=== PATIENT | male | born 1935 | race Caucasian/White ===

== ENCOUNTER 2025-01-28 14:22 | Inpatient (IN) | payer OTHER, SELFPAY ==
[2025-01-28] VITALS (11 sets, daily range): BP systolic 94–131; BP diastolic 50–81; BMI 24.4; BMI 23.3
[2025-01-28 10:41] LABS: Hematocrit 37.5 % (39.0-52.0); Hemoglobin 12.8 g/dL (13.0-18.0); Mean Corp Hgb Conc. 34.1 g/dL (33.0-37.0); Mean Corpuscular Volume 89.1 fL (80.0-94.0); Nucleated Red Blood Cells % 0 % (-); Platelet Count 163 10^3/uL (130-400); Red Cell Dist. Width 12.4 % (11.5-14.5)
--- NOTE | 2025-01-28 10:49 | ED.GENMED ---
History of Present Illness
General
Chief Complaint: Breathing Problem
Source: patient
Exam Limitations: none
Time Seen by Provider: 01/28/25 10:33
History of Present Illness
History of Present Illness:
89-year-old male with history of COPD presents with worsening dyspnea on exertion over the past several weeks. This seems to have gotten worse over the last several days. There is no chest pain. He has a history of hypertension as well. He is
not anticoagulated. No new leg swelling or calf pain. No recent surgery or travel. He was evaluated as an outpatient and echocardiogram done in the middle of October which showed an ejection fraction of 45 to 50% and sever . No other complaints
at this time
Phy Exam
Physical Exam
Physical Exam:
General: Well-appearing male no acute respiratory distress
HEENT: Normocephalic atraumatic
Heart: Regular rate and rhythm
Lungs: Breath sounds diminished bilaterally
Extremities: Mild pitting edema bilateral lower extremities
Abdomen is soft nontender nondistended
Scores
Heart Failure Risk
Heart Failure Risk Score: Yes
History of Stroke or TIA: No
History of intubation for respiratory distress: No
Heart rate on ED arrival >/= 110: No
SaO2 <90% on arrival on room air: No
HR >/=110 during 3min walk test (or too ill to perform test): Yes
ECG has acute ischemic changes: No
Urea >/=12mmol/L (BUN 33.6mg/dL): No
Serum CO2>/=35mmol/L: No
Troponin I or T elevated to WA Level (0.4mg/dL): No
NT-proBNP >/=5,000ng/L (5,000pg/ml): Yes
HF Risk Score: 3
Admission Status: HIGH RISK 15.9% Consider SNF treatment or admission to hospital
Course
Orders/Labs/Results
Orders:
Orders
01/28/25 09:31
EKG [Electrocardiogram (*1)] Urgent
Reason for Study: Shortness of Breath
01/28/25 09:32
EKG- Treatment ONCE
01/28/25 10:31
Complete Blood Count/With Diff Urgent
Comprehensive Metabolic Panel Urgent
NT-proBNP Urgent
Troponin I Urgent
01/28/25 10:48
CR Chest - 2 Views Urgent
Comment:
Reason For Exam: sob
Abnormal Lab Results
01/28/25
10:31
RBC 4.21 L 10^6/uL
(4.70-6.10)
Hgb 12.8 L g/dL
(13.0-18.0)
Hct 37.5 L %
(39.0-52.0)
Absolute Lymphs (auto) 0.9 L 10^3/uL
(1.2-3.4)
Absolute Monos (auto) 0.7 H 10^3/uL
(0.1-0.6)
Lymphocytes % 15.5 L %
(20.5-51.1)
Monocytes % 11.6 H %
(1.7-9.3)
01/28/25 10:31
01/28/25 10:31
Vital Signs
Initial and Last Documented VS:
Initial Vital Signs
Temp Pulse Resp BP Pulse Ox
97.8 F 72 16 116/63 96
01/28/25 09:27 01/28/25 09:27 01/28/25 09:27 01/28/25 09:27 01/28/25 09:27
Last Documented Vital Signs
Temp Pulse Resp BP Pulse Ox
97.8 F 81 11 116/63 96
01/28/25 09:27 01/28/25 11:00 01/28/25 11:00 01/28/25 09:27 01/28/25 11:00
MDM/Problems Addressed
Differential Diagnosis Includes:
Shortness of breath with exertion. Differential could include ACS versus CHF versus COPD versus anemia
Overall there is mild edema to the legs but does not look terribly volume overloaded. There is no respiratory difficulty at rest. Breath sounds slightly diminished but may be a product of his COPD. No risk for PE. There is no pain. He has no
symptoms at rest. Will check labs including EKG troponin and BNP. X-ray pending. Will ambulate the patient to evaluate his heart rate and oxygen status when ambulating
*Pulse Oximetry
SaO2: 97
Oxygen Mode of Delivery: Room air
Patient hypoxic: no
*Critical Care Note
Total Time (30-74mins, 75-104mins- exclusive of procedures): Not Applicable
Update Note
Update Note:
Chest x-ray shows pulmonary edema BNP 11,000. Ambulatory test demonstrates the patient becomes hypoxic upon minimal ambulation. He drops to 87% with several steps. Given symptoms of dyspnea on exertion edema elevated BNP and recent echocardiogram
demonstrated ejection fraction 45 to 50% with severe aortic stenosis, will admit to hospital. Lasix ordered for CHF
ED Attending Note
-
Portions of this chart may have been created with voice recognition software.� Occasional wrong word or��sound alike� substitutions may have occurred due to the inherent limitations of voice recognition software.
Discharge Plan
Departure
Patient Disposition: Admit
Date of Disposition: 01/28/25
Time of Disposition: 12:08
Presentation/result/management discussed w/ accepting MD/DO: Hospitalist
Discharge Problem:
CHF (congestive heart failure)
Interventions
Interventions:
*Risk Screen - Suicide Last Done: 01/28/25 09:27
*Neglect/Abuse Screening Last Done: 01/28/25 09:27
ED- Cardiac Assessment Last Done: 01/28/25 10:32
ED- Pulmonary Assessment Last Done: 01/28/25 10:32
Discharge Date and Time
Print Language: NEPALI
[2025-01-28 11:03] LABS: Troponin I 0.015 ng/ml
[2025-01-28 11:09] LABS: ALT (SGPT) 11 U/L (0-50); AST (SGOT) 18 U/L (17-59); Albumin 3.9 g/dl (3.5-5.0); Alkaline Phosphatase 61 U/L (38-126); Blood Urea Nitrogen 19 mg/dl (9-20); Calcium 9.2 mg/dl (8.4-10.2); Carbon Dioxide 28 mmol/L (22-30); Chloride 102 mmol/L (98-107); Estimated Creatinine Clearance 59 ml/min; Glucose 96 mg/dl (70-99); Potassium 3.7 mmol/L (3.5-5.1); Sodium 135 mmol/L (135-145); Total Protein 6.4 g/dl (6.3-8.2); eGFR > 60.00
[2025-01-28] MEDS: LASIX 40 MG IV (12:38)
--- NOTE | 2025-01-28 12:47 | HPS.HSE ---
Family Physician
-
Family Physician:
Chief Complaint
-
Shortness of breath, OROZCO, CP
History of Present Illness
89-year-old male from home where he lives independent attached to his son's home who states he has had shortness of breath since November on and off. It has been more consistent with exertion over the past 10 days with some associated chest discomfort
during exertion. He went to his PCP and had outpatient echo in October at [facility] which showed EF 45-50% along with critical aortic stenosis. He denies recent fever, chills, sore throat, palpitations, abdominal pain, nausea, vomiting,
diarrhea, urinary symptoms. He has past medical history of hypertension, COPD, former smoker, BPH, GERD.
Medical History
Past Medical History
Past Medical History: Reports Other
Additional Past Medical History:
hypertension
COPD
former smoker,
BPH
GERD.
Past Surgical History: Reports Other
Social History
Tobacco: Former Smoker (48 years 1 to 2 pack a day stopped 39 years ago)
Alcohol: None
Drug: None
Personal: Single
Living: Alone (But lives attached to his son's home)
Employment: Retired
Family History
Family History: Not pertinent
Allergies / Home Medications
Allergies reflects when Allergies were last updated in [employer] [facility].
Home Medications with original date entered in [employer] [facility]
Allergy/Medication List:
Allergies
Allergy/AdvReac Type Severity Reaction Status Date / Time
No Known Allergies Allergy Unverified 01/28/25 09:26
Home Medications
Breztri Aerosphere 2 puff inhalation BID 01/28/25
Colace 100 mg PO DAILY 01/28/25
Fish Oil 1,000 mg PO DAILY 01/28/25
Flomax 0.4 mg PO DAILY 01/28/25
Psyllium Husk Fibre 1 tab PO DAILY 01/28/25
lisinopril-hydrochlorothiazide 10 mg PO DAILY 01/28/25
pantoprazole 40 mg PO DAILY@0730 01/28/25
vitamin E 1 cap PO DAILY 01/28/25
Review of Systems
-
History Source: Patient and Family (Son and [id number])
A 12 point ROS was completed and negative except as noted: Yes
Constitutional: Denies Fever
EENT: Denies Sore Throat or Runny Nose
Respiratory: Reports Trouble Breathing and Other (OROZCO); Denies Cough
Cardiac: Reports Chest Pain (With exertional CP); Denies Diaphoresis, Palpitations or Syncope
Abdomen/GI: Denies Abdominal Pain, Nausea, Vomiting, Diarrhea or Constipated
: Denies Dysuria, Frequency, Flank Pain, Incontinence or Difficulty Voiding
Musculoskeletal: Reports Edema (+1 bilateral lower legs); Denies Joint Pain
Skin: Denies Itching or Rash
Neurological: Denies Dizzy or Headache
Endocrine: Reports No Symptoms
Hematologic/Lymphatic: Reports No Symptoms
Psych: Reports Calm
Physical Exam
Vital Signs
Vital Signs
Temp Pulse Resp BP Pulse Ox
97.8 F 67 16 105/67 97
01/28/25 09:27 01/28/25 12:38 01/28/25 12:38 01/28/25 12:38 01/28/25 12:38
Physical Exam
General: Comfortable and Conversant; No Pain, Fever or Chills
HEENT: NormoCephalic, Anicteric, Moist mucous membranes, PERRLA, [place] Conjunctivae and No Ptosis
Respiratory: Clear; No Wheezes, Rales or Rhonchi
Cardiac: S1/S2, Regular Rhythm, Murmur (2/6 systolic) and Peripheral Edema (+1 bilateral lower legs); No Rub or Gallop
GI: Soft, Non Tender, Non Distended, Normal Bowel Sounds and No Hepatosplenomegaly
Rectal: Deferred by Provider
Genito-urinary: Deferred by me
Musculoskeletal: No Clubbing, No Cyanosis, Edema, Left Lower Extremity (+1) and Edema, Right Lower Extremity (+1); No Edema, Left Upper Extremity or Edema, Right Upper Extremity
Skin: Warm and Dry; No Rash or Jaundice
Neuro: AO x 3, No Motor Deficits, Nonfocal/grossly intact and No Sensory Deficits; No Slurred Speech, Facial Droop or Tremors
Psych: Calm
Laboratory Results
-
01/28/25 10:31
01/28/25 10:31
Laboratory Results
Total Bilirubin 0.6 mg/dl (0.2-1.3) 01/28/25 10:31
AST 18 U/L (17-59) 01/28/25 10:31
ALT 11 U/L (0-50) 01/28/25 10:31
Alkaline Phosphatase 61 U/L (38-126) 01/28/25 10:31
Troponin I 0.015 ng/ml 01/28/25 10:31
Data Reviewed
-
Diagnostic Radiology: Report Reviewed by me
Lab Data: Labs Reviewed by me
Impression/Plan
-
Impression/plan:
Admit to telemetry
#Acute dyspnea on exertion likely secondary to critical aortic stenosis/acute combined CHF
#Cardiomyopathy reduced EF 45% per echo October 2024
Symptoms since November worse over the past 10 days associated with chest pain
- I/O, daily weight
- IV Lasix 40 mg given in ER will give 40 mg daily
- Consult CBC cardiology Dr. Wahl made aware
- Follow CBC, CMP
PT/OT consult
CXR: Pulmonary vascularity at least top normal no findings to suggest pneumonia
2D echo 11/13/2024: EF 45-50%, global hypokinesis, grade 2 diastolic dysfunction, normal LV S LVSF, mild LVH,
Scanned into chart normal RV size and function, dilated left atrium
Critical aortic stenosis peak gradient 97 mmHg mean gradient 61 mmHg. Mild mitral regurgitation, trace TR
#COPD�no acute exacerbation
-Continue Breztri inhaler
#HTN�benign
May continue lisinopril 10 mg daily hold HCTZ 12.5 mg daily
#BPH
Continue Flomax 0.4 mg daily
#GERD
Continue Protonix 40 mg daily
DVT prophylaxis
Subcu heparin
DNR per patient with family present
--- NOTE | 2025-01-28 12:48 | CON.CAR ---
Addendum entered and electronically signed by Sam Wahl MD 01/28/25 16:54:
I saw and evaluated the patient, and I provided the substantive portion of the medical decision making.
I reviewed and agree with the note by Maria Isabel Reinoso and it accurately reflects our care.
I personally performed the medical decision making of the this encounter and my assessment and plan is below:
89-year-old male (does not see cardiology), with HFrEF (45 to 50%), critical aortic stenosis, COPD, former smoker, and hypertension who presented to the emergency department with the chief complaint of OROZCO. He never fully got the result of his
echo but he began to limit his daily swims at the [facility] in October. At first he though it was just COPD. He lives in a in-law suite attached to his daughter's house, but is still very independent doing all of his ADLs, swimming at the daily usually.
On exam he has a caudally displaced heart sounds, 2 out of 6 crescendo decrescendo murmur right under rib cage, lungs clear to auscultation bilaterally, trace lower extremity edema always asymmetrical per his daughter who is at the bedside.
Acute heart failure with mildly reduced ejection fraction: I suspect a valvular etiology. Agree with gentle IV diuresis, this will require intensive monitoring.
Severe aortic stenosis: I suspect this is already caused some systolic depression. Explained TAVR is a good consideration for him. Will ask the team to see him while he is here. Explained this is typically done in the outpatient setting. He
understands and is agreeable. I explained that most of his symptoms may simply be due to his severe aortic stenosis.
COPD: Chronic
Hypertension Typically on hydrochlorothiazide and lisinopril holding hydrochlorothiazide and lieu of furosemide. Continue lisinopril.
Original Note:
Consultation
Consultation Request
Date/Time Consultation Requested: 01/28/2025 12:45
Date/Time Consultation Performed: 01/28/2025 12:50
Requesting Provider: CHILANGO Kwan
Performing Provider: CHILANGO Mcdaniel for Dr. Wahl
Reason for Consultation: Acute on chronic HFrEF
Medical History
-
Chief Complaint: Dyspnea on exertion
History of Present Illness:
Bony Valle is an 89-year-old male (does not see cardiology), with HFrEF (45 to 50%), critical aortic stenosis, COPD, former smoker, and hypertension who presented to the emergency department with the chief complaint of OROZCO. His shortness of breath
started at least 4 weeks ago. It has been slowly getting worse. It gets worse with exertional activities. He does not have any shortness of breath at rest. He denies PND and orthopnea. In October he had an echocardiogram ordered by his PCP. He
does not recall this was not discussed with him at his most recent office visit. He denies chest pain, dizziness, and syncope.
His daughter and son-in-law were present for this consultation.
Past Medical History
Past Medical History: CHF (HFrEF [EF 45 to 50%]), COPD, HTN and Valvular Disease (Critical aortic stenosis)
Social History
Tobacco: Former Smoker
Alcohol: None
Living: Alone (Attached to son's home)
Employment: Retired ([employer])
Family History
Family History: Reviewed & Not Pertinent
Allergies / Home Medications
Allergy/AdvReac Type Severity Reaction Status Date / Time
No Known Allergies Allergy Unverified 01/28/25 09:26
�Medication �Instructions �Recorded �Confirmed �Type
Breztri Aerosphere 2 puff inhalation BID 01/28/25 01/28/25 History
Colace 100 mg PO DAILY 01/28/25 01/28/25 History
Fish Oil 1,000 mg PO DAILY 01/28/25 01/28/25 History
Flomax 0.4 mg PO DAILY 01/28/25 01/28/25 History
Psyllium Husk Fibre 1 tab PO DAILY 01/28/25 01/28/25 History
lisinopril-hydrochlorothiazide 10 mg PO DAILY 01/28/25 01/28/25 History
pantoprazole 40 mg PO DAILY@0730 01/28/25 01/28/25 History
vitamin E 1 cap PO DAILY 01/28/25 01/28/25 History
Review of Systems
-
History Source: Patient
All other systems: Negative unless noted
Constitutional: Fatigue
EENT: No Symptoms
Respiratory: Trouble Breathing
Cardiac: No Symptoms
Abdomen/GI: No Symptoms
: No Symptoms
Musculoskeletal: No Symptoms
Skin: No Symptoms
Neurological: No Symptoms
Endocrine: No Symptoms
Hematologic/Lymphatic: No Symptoms
Physical Exam
Vital Signs
Temp Pulse Resp BP Pulse Ox
97.8 F 67 16 105/67 97
01/28/25 09:27 01/28/25 12:38 01/28/25 12:38 01/28/25 12:38 01/28/25 12:38
Lab Results
01/28/25 10:31
01/28/25 10:31
Troponin I 0.015 ng/ml 01/28/25 10:31
Ckr-A-Mlcgivcmjek Pept [id number] pg/ml 01/28/25 10:31
Physical Exam
General: Well Developed, Well Nourished, No Apparent Distress and Comfortable
HEENT: Normocephalic, Anicteric and Moist Mucous Membranes
Respiratory: Clear and Non Labored Respirations
Cardiac: S1/S2, Regular Rhythm, Murmur (III/) and Peripheral Edema (+1 ankle edema)
Breast: Deferred by me
GI: Soft, Non Tender, Non Distended and Normal Bowel Sounds
Rectal: Deferred by Provider
Genito-urinary: No Costovertebral Tender
Musculoskeletal: No Clubbing and No Cyanosis
Skin: Warm and Dry
Neuro: Awake and Alert
Hematologic/Lymphatic: No Lymphadenopathy
Psych: Calm
Impression / Plan
-
I/P: 89M with critical aortic stenosis, COPD, and hypertension who presented to the emergency department with C/O of OROZCO.
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
HFrEF (EF 45-50%), acute on chronic - severe requiring hospitalization
- Diuresis with furosemide 40 mg IV daily, this requires intensive monitoring
- Can consider SGLT2i if affordable
- Heart failure education
- Trend Daily weight, I/O, BMP with diuresis
Aortic stenosis, critical
- Per report, peak/mean 97/61 mmHg (CAITLIN 0.4-0.6 cm2) - 10/2024 at an outside facility
- No imaging for review, update TTE
- He would be interested in a TAVR if he is a candidate
Hypertension
- Stop HCTZ in favor of furosemide
- Follow BP
COPD, no acute exacerbation, per primary
Former smoker, continued cessation recommended
Data Reviewed
-
EKG: Report Reviewed by me (Sinus rhythm, nonspecific T wave abnormality, rate 80)
Radiology: Report Reviewed by me
Labs: Labs Reviewed by me
Old Records: Requested
--- NOTE | 2025-01-28 13:21 | W.PN.UPDATE ---
Update Note
Progress Note Update
This note serves as an addendum to the H&P by shop fitter Luis F Bray
HPI�
89M Former smoker , lives alone,I- ADL , next to So's house sen at ER:
- I- ADL - lives independent
- Progressive SoB since November now more with minimal exertion over last 10days
- associated chest discomfort during exertion
- Seen by PCP and had outpatient echo in October at [facility] which showed EF 45-50% along with critical aortic stenosis.
ROS:
denies recent fever, chills, sore throat, palpitations, abdominal pain, nausea, vomiting, diarrhea, urinary symptoms.
PMHX
hypertension, COPD, former smoker, BPH, GERD.
Reviewed VS:
Temp Pulse Resp BP Pulse Ox
97.8 F 70 17 116/59 96
01/28/25 09:27 01/28/25 13:30 01/28/25 13:30 01/28/25 13:03 01/28/25 13:03
PE
Gen: Conversant, NAD
HEENT: anicterics
Neck:No JVD
Lungs: Clear; No Wheezes, Rales
Cor: S1/S2, Regular Rhythm, loud SM at apex
Abdomen:�soft NT NG
BULK PLANT SUPERVISOR:
MS: B/L Kalen 1 trace edema
Psych: appropriate
Relevant Data�
01/28/25
10:31
WBC 5.6
Hgb 12.8 L
BUN 19
Creatinine 0.8
eGFR > 60.00
Troponin I 0.015
Rtm-X-Irkxhgvgfyb Pept [id number]
EKG
NORMAL SINUS RHYTHM
NONSPECIFIC T WAVE ABNORMALITY
ABNORMAL ECG
NO PREVIOUS ECGS AVAILABLE
Confirmed by MD JUANI, NNAMDI Reardon ([id number]) on 01/28/2025 11:16:56 AM
CXR
- No findings to suggest pneumonia.
- Pulmonary vascularity at least top normal.
NO PRIOR hospitalist admission:
11/13/[address] [facility]
LV EF 45-50%,
global hypokinesis
grade 2 diastolic dysfunction, normal LV S LVSF, mild LVH,
normal RV size and function, dilated left atrium
Critical aortic stenosis peak gradient 97 mmHg mean gradient 61 mmHg.
Mild mitral regurgitation
Trace TR
Last hospitalist admission:
ASSESSMENT & PLAN
Acute HF
Suspect HFrEF with EF 45%
Associated critical aortic stenosis - suspect symtomatic
Acute dyspnea on exertion likely secondary to critical aortic stenosis/acute combined CHF
Cardiomyopathy reduced EF 45% per echo October 2024
- IV alsix 40 daily
- Daily BMP
- Daily I/O, daily weight
- Consult CBC cardiology Dr. Wahl made aware
COPD HX
� no AE
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
Marginal hypotension
Essential HTN
- cont. lisinopril 10 mg daily - Hold for SBP < 110 due to critical
- hold HCTZ 12.5 mg daily
BPH
- c/w Flomax 0.4 mg daily
DVT prophylaxis; SQH
DNR per patient with family present
IP TLM
--- NOTE | 2025-01-28 17:58 | TRANSFER ---
Pt came to 3W unit around 1600 vis hospital bed. Pt was able to ambulate from hospital bed to room bed without any need for assistance. Pt denied OROZCO when ambulated from bed in hallway to bed in room. medical dir completed. Pt had no complaint of
pain at this time. Will continue with plan of care.
[2025-01-28] MEDS: HEPARIN 5000 UNITS SC (20:53)
[2025-01-29] VITALS (7 sets, daily range): BP systolic 93–116; BP diastolic 50–67; PULSE 91; O2SAT 97; BMI 23.1
[2025-01-29 06:47] LABS: Hematocrit 35.4 % (39.0-52.0); Hemoglobin 12.0 g/dL (13.0-18.0); Mean Corp Hgb Conc. 33.9 g/dL (33.0-37.0); Mean Corpuscular Volume 88.5 fL (80.0-94.0); Nucleated Red Blood Cells % 0 % (-); Platelet Count 172 10^3/uL (130-400); Red Cell Dist. Width 12.3 % (11.5-14.5)
[2025-01-29 07:01] LABS: ALT (SGPT) < 10 U/L (0-50); AST (SGOT) 17 U/L (17-59); Albumin 3.5 g/dl (3.5-5.0); Alkaline Phosphatase 51 U/L (38-126); Blood Urea Nitrogen 26 mg/dl (9-20); Calcium 9.3 mg/dl (8.4-10.2); Carbon Dioxide 32 mmol/L (22-30); Chloride 102 mmol/L (98-107); Estimated Creatinine Clearance 47 ml/min; Glucose 87 mg/dl (70-99); HDL Cholesterol 56 mg/dl; LDL Cholesterol, Calculated 84 mg/dl; Magnesium 1.8 mg/dl (1.6-2.3); Potassium 4.1 mmol/L (3.5-5.1); Sodium 137 mmol/L (135-145); Total Protein 5.8 g/dl (6.3-8.2); Very Low Density Lipoprotein 12 mg/dl (0-30); eGFR > 60.00
[2025-01-29] MEDS: NON-FORMULARY ITEM 1 UNIT INH (07:53)
[2025-01-29] MEDS: PROTONIX 40 MG PO (08:10)
[2025-01-29] MEDS: COLACE 100 MG PO (08:10)
[2025-01-29] MEDS: FLOMAX 0.4 MG PO (08:10)
[2025-01-29] MEDS: HEPARIN 5000 UNITS SC ×2 (08:11→20:30)
[2025-01-29] MEDS: LASIX 40 MG IV (08:13)
--- NOTE | 2025-01-29 08:37 | W.PN.CD ---
Today's Communication / Plan
-
expedite TAVR workup with CT today, cath tomorrow, discharge post cath if feeling well with outpatient TAVR in next week or so
Impression / Plan
-
I/P: 89M with critical aortic stenosis, COPD, and hypertension who presented to the emergency department with C/O of OROZCO.
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
Aortic stenosis, critical
- truly critical with mean gradient 80 with DVI 0.1
- discussed TAVR at length - will pursue expedited workup with CTA today, cath tomorrow; plan for outpatient TAVR ideally next week as long as able to ambulate without symptoms
- explained that he cannot exert himself until valve replaced and that any symptoms of shortness of breath, lightheadedness, palpitations, weakness, chest pain, etc. should prompt presentation to the ED
HFrEF (EF 45-50%), acute on chronic - severe requiring hospitalization
- likely 2/2 valvular heart disease though hypokinesis of the anterior and anterolateral geronimo raises possibility of CAD
- Would hold additional diuresis for now given pre-load dependence
- favor initiation of GDMT after valve replacement - continue home lisinopril 10 (hold HCTZ)
- Trend Daily weight, I/O, BMP
Hypertension
- Stop HCTZ in favor of furosemide
- Follow BP
COPD, no acute exacerbation, per primary
Former smoker, continued cessation recommended
Physical Exam
Vital Signs/Labs
Vital Signs
Temp Pulse Resp BP Pulse Ox
36.9 C 89 16 106/67 95
01/29/25 07:00 01/29/25 08:27 01/29/25 07:55 01/29/25 08:27 01/29/25 07:55
01/28/25 01/29/25 01/30/25
06:59 06:59 06:59
Actual Weight 66.814 kg
01/29/25 06:09
01/29/25 06:09
Magnesium 1.8 mg/dl (1.6-2.3) 01/29/25 06:09
Triglycerides 60 mg/dl (10-149) 01/29/25 06:09
LDL Cholesterol, Calc 84 mg/dl 01/29/25 06:09
VLDL Cholesterol, Calc 12 mg/dl (0-30) 01/29/25 06:09
HDL Cholesterol 56 mg/dl 01/29/25 06:09
01/28/25
10:31
Kdz-V-Ehgygodxrii Pept [id number]
LAB Results
01/28/25
10:31
Troponin I 0.015
Physical Exam
Constitutional: Comfortable
Cardiovascular: Rhythm & rate is regular and Systolic murmur present
Respiratory: Respiratory effort normal
Neuro/Psych: AO x 3
Data Reviewed
-
Date of Service: January 29, 2025
Medical Decision Making: Reviewed Test Results
EKG: Tracing Personally Visualized and interpreted
Echo: Tracing Personally Visualized and interpreted
Labs: Labs Reviewed by me
--- NOTE | 2025-01-29 09:50 | PTOTSP ---
Patient demonstrates safe and independent mobility, no skilled physical therapy needed at this time.
--- NOTE | 2025-01-29 09:51 | W.PN.HOSP.TC ---
Today's Communication/Plan
-
See plan
Assessment / Plan
Assessment / Plan
Impression:
Acute CHF mildly reduced EF/valvular
Critical aortic stenosis
Essential hypertension
COPD without acute exacerbation
Former smoker
BPH
Plan
Acute CHF mildly reduced EF (45-50%).
Exacerbation likely due to critical aortic stenosis.
Responding to initial diuresis with Lasix, although with soft BP and worsening alkalosis.
Stable respiratory status with no requirement of supplemental oxygen at rest.
With severe aortic stenosis plan is to hold further Lasix and monitor respiratory status and hemodynamics closely
Continue lisinopril with caution
GDMT likely to be initiated/adjusted as outpatient post aortic valve replacement
Hold HCTZ
Critical aortic stenosis.
Echo with mean gradient 18 and aortic valve area 0.54 cm�/DVI 0.1
Initiated evaluation for TAVR including CT scan and ischemic evaluation.
Essential hypertension
BP soft with diuresis.
Hold HCTZ.
Continue lisinopril with caution
Avoid excessive hypotension with critical
COPD.
Lungs clear with no evidence of acute exacerbation
Former smoker per
Continue breast tree
BPH
On Flomax continue with caution for hypotension
Anticipated Discharge: 24 - 48 hours
Subjective/Interval History
-
Date of Service: January 29, 2025
Objective Data
-
Labs:
Laboratory Results
01/29/25
06:09
WBC 5.1
Hgb 12.0 L
Hct 35.4 L
Plt Count 172
Sodium 137
Potassium 4.1
Chloride 102
Carbon Dioxide 32 H
BUN 26 H
Creatinine 1.0
Glucose 87
Calcium 9.3
Total Bilirubin 0.6
AST 17
ALT < 10
Alkaline Phosphatase 51
Vital Signs:
Vital Signs
Temp Pulse Resp BP Pulse Ox
98.4 F 89 16 106/67 97
01/29/25 07:00 01/29/25 08:27 01/29/25 07:55 01/29/25 08:27 01/29/25 08:20
I&O
01/28/25 01/29/25 01/30/25
06:59 06:59 06:59
Intake Total 240 / 240
Output Total 925 / 925
Balance -685 / -685
Physical Exam
-
General: Well Developed and No Apparent Distress
HEENT: Normocephalic, Atraumatic and Moist Mucous Membranes
Respiratory: Clear to Auscultation
Cardiac: Regular Rhythm, S1/S2 and Murmur (Left sternal border 3 out of 6 systolic); Negative Rub or Gallop
GI: Soft, Nontender, Nondistended and Normal Bowel Sounds; Negative Organomegaly
Rectal: Deferred by Provider
Musculoskeletal: No Clubbing, No Cyanosis and No Edema
Skin: Negative Rash
Neuro: Nonfocal/Grossly Intact
--- NOTE | 2025-01-29 11:46 | CONSULT.STRU ---
Addendum entered and electronically signed by Krishna Mills MD 01/30/25 09:49:
I saw and examined the patient.
The PASTRY ARTIST's note was reviewed and I agree with the note.
Comment:
I met with Mr. Valle, given his age and comorbidities I do believe that a transcatheter option would be most reasonable provided his anatomy on TAVR CT is acceptable. He will undergo LHC and CT scans today, I will review, and revisit him over the
weekend to expedite his procedure.
Original Note:
Consultation
-
Date/Time Consultation Requested: 01/29/2025
Date/Time Consultation Performed: 01/29/2025
Requesting Provider: Dr. Hooper
Performing Provider: CHILANGO Paris
Reason for Consultation: Critical Aortic Stenosis/ TAVR evaluation
Patient History
Physicians
Family Physician: Nino Olivas
Outpatient Shipping Receiving Clerk: None
Primary Shipping Receiving Clerk: None
History of Present Illness
Bony Valle is a very pleasant 89-year-old male with past medical history of HFrEF (45 to 50%), critical aortic stenosis, COPD, former smoker, and hypertension. He presented to the emergency department on 01/28 with the chief complaint of OROZCO. His
shortness of breath started at least 4 weeks ago. It has been slowly getting worse. It gets worse with exertional activities. He does not have any shortness of breath at rest. He also complains of near syncopal episodes. He denies chest pain,
palpitations, PND and orthopnea. In October he had an echocardiogram ordered by his PCP. He does not recall if the results were discussed with him at his most recent office visit. He does not follow with a skiver blockers and recalls being told for
years he has a murmur, but first echocardiogram was October.
Pathophysiology of aortic stenosis reviewed with Mr. Valle as well as the treatment options of SAVR and TAVR. Explained he will need dental clearance. He is to get his CT TAVR today and cardiac cath tomorrow with Dr. Hooper. Provided with TAVR
education booklet and contact information. Allowed for and answered questions.
Past Medical History
Past Medical History: BPH, CHF, COPD, OROZCO, GERD, HTN and Valvular Disease (Critical , Mild AI, Mild to moderate MR)
Past Surgical History
Past Surgical History: None
Dental History
Sees dentist annually for cleaning, denies and mouth pain- Dr. Cong Yeboah
Family History
Mother: N/A
Father: N/A
Social History
Alcohol: None
Drug: None
Tobacco: Former Smoker (Quit 40+ years ago, 40 year h/o 1 1/2-2ppd)
Personal: Single
Living: Alone
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
Allergies
Allergy/AdvReac Type Severity Reaction Status Date / Time
No Known Allergies Allergy Unverified 01/28/25 09:26
Home Medications
�Medication �Instructions �Recorded �Confirmed �Type
Breztri Aerosphere 2 puff inhalation BID 01/28/25 01/28/25 History
Colace 100 mg PO DAILY 01/28/25 01/28/25 History
Fish Oil 1,000 mg PO DAILY 01/28/25 01/28/25 History
Flomax 0.4 mg PO DAILY 01/28/25 01/28/25 History
Psyllium Husk Fibre 1 tab PO DAILY 01/28/25 01/28/25 History
lisinopril-hydrochlorothiazide 10 mg PO DAILY 01/28/25 01/28/25 History
pantoprazole 40 mg PO DAILY@0730 01/28/25 01/28/25 History
vitamin E 1 cap PO DAILY 01/28/25 01/28/25 History
Review of Systems
-
History Source: Patient
General: Reports Weight Loss
HEENT: Reports Dysphagia
Respiratory: Reports Other (COPD, bronchitis about 2 years ago, no recent exacerbations )
Cardiac: Reports Edema (recent, mild LE); Denies Palpitations, Nausea or Vomiting
Abdomen/GI: Reports No Symptoms; Denies Nausea, Vomiting or Diarrhea
: Reports No Symptoms
Musculoskeletal: Reports No Symptoms
Skin: Reports Other (rosacea)
Neurological: Reports No Symptoms
Vascular: Reports No Symptoms; Denies Claudication
Physical Exam
Vital Signs
Temp 98.2 F 01/29/25 11:00
Temp route: Oral 01/29/25 11:00
Pulse 75 01/29/25 11:00
Rhythm: Normal sinus rhythm 01/29/25 08:20
With- Sinus bradycardia 01/28/25 20:50
Resp Rate 18 01/29/25 11:00
Blood pressure 116/57 01/29/25 11:00
Blood pressure extremity used: Left upper arm 01/29/25 11:00
Position: Lying 01/29/25 11:00
MAP (cuff-Kristine Monitor) 56 01/28/25 15:00
SaO2 98 01/29/25 11:00
Oxygen Mode of Delivery Room air 01/29/25 11:00
Pulse Ox at Rest 97 01/29/25 09:36
Acceptable pain level during hospitalization? 0 01/28/25 09:27
Can the patient verbally communicate their pain? Yes 01/29/25 08:20
Actual Weight 66.814 kg 01/29/25 06:00
Body Mass Index (BMI) 23.1 01/29/25 06:00
Sitting- Blood Pressure 112/61 01/29/25 09:36
Sitting- Pulse 91 01/29/25 09:36
Heart rate after activity 97 01/29/25 09:36
Oxygen Saturation with Activity 95 01/29/25 09:36
Labs
01/29/25 06:09
01/29/25 06:09
Troponin I 0.015 ng/ml 01/28/25 10:31
Bmq-X-Lgfgljwuoma Pept 34771 pg/ml 01/28/25 10:31
Diagnostic Studies
01/28/2025 Echocardiogram:
SUMMARY
1. Mildly reduced left ventricular ejection fraction. LVEF 40–45 9%.
2. Hypokinesis of the anterior and anterolateral geronimo.
3. Critical aortic stenosis with peak/mean gradient 139/80 mmHg, CAITLIN 0.54 cm², DVI 0.1.
4. Mild aortic regurgitation.
5. No prior study available for comparison.
6. Findings communicated to on-call cardiology team via [place] [facility].

Transthoracic Echo procedure
A complete Transthoracic Echocardiogram was performed utilizing Two-Dimensional evaluation with color flow and spectral Doppler analysis.
PHYSICIAN INTERPRETATION
Left Ventricle:
Normal left ventricle size and wall thickness with mildly reduced systolic function. Left ventricular ejection fraction is 40-45% by visual estimate. Hypokinesis of the anterior and anterolateral geronimo. Stage II diastolic dysfunction consistent with
elevated LV filling pressures.
Right Ventricle:
Right ventricular size and systolic function are within normal limits.
Left Atrium:
Indexed left atrial volume is within normal range (15-34 ml/m2).
Right Atrium:
The right atrium is normal in size and structure. The inferior vena cava was not well visualized.
Interatrial Septum:
The interatrial septum appears normal and intact, with no evidence of interatrial shunting.
Aortic Valve:
Thickened and calcified aortic valve. Critical aortic stenosis. Peak/mean gradients are 139/80 mmHg. Using an left ventricular outflow tract of 2.2 cm., the CAITLIN = .54 cm2. DVI 0.1. Mild aortic regurgitation.
Mitral Valve:
There is thickening of the anterior and posterior leaflets of the mitral valve. Mild mitral annular calcification. Mild to moderate mitral valve regurgitation.
Tricuspid Valve:
Right heart pressure cannot be estimated. Tricuspid valve opens normally. No tricuspid regurgitation.
Pulmonary Valve:
The pulmonic valve is not well seen.
Aorta:
The aortic annulus is normal in diameter.
Exam
General: Well Developed, Well Nourished, No Apparent Distress and Comfortable
HEENT: Normocephalic, Moist Mucous Membranes and PERRLA
Neck: Trachea Midline
Respiratory: Clear; Negative Wheezes, Crackles or Rhonchi
Cardiac: S1/S2, Regular Rhythm and Murmur (Grade III/ RAFAEL)
GI: Soft, Non Tender, Non Distended and Normal Bowel Sounds
Rectal: Deferred by Provider
Skin: Warm and Dry
Neuro: AO x 3 and No Motor Deficits
Extremities: Negative Lower Level Edema
Psych: Calm
Assessment / Plan
-
HFrEF (EF 45-50%), acute on chronic - severe requiring hospitalization
- Diuresis as recommended by cardiology
- Heart failure education
- Trend Daily weight, I/O, BMP with diuresis
- low sodium diet
Aortic stenosis, critical
- peak/mean 139/80 mmHg (CAITLIN 0.54 cm2)
- Expedited TAVR evaluation
- CT TAVR scan today
- Cardiac cath tomorrow
- Will need dental clearance
- Will need to begin Aspirin 81mg daily
Hypertension
- Follow BP
- medication as recommended by cardiology
COPD
- no recent exacerbations
- follows with Dr. Mckeon (alarm installation technician) as an outpatient
- continue current inhaler regimen
Data Reviewed
-
EKG: Report Reviewed by me
Echo: Report Reviewed by me and Discussed with Physician
Labs: Labs Reviewed by me
Total Time Spent with Patient (in minutes): 40
--- NOTE | 2025-01-29 12:23 | CM ---
Patient seen at bedside
IA completed
CT today, cath tomorrow
Lives in an apartment alone, no steps
PLOF: independent, no assistive device used
independent with ADL's
DME: Walker, cane, shower chair
Denies VN/Rehab
PCP: Nino Olivas
Pharmacy: [facility]
PLAN: Home, no needs anticipated when stable
family to transport
[2025-01-29] MEDS: NON-FORMULARY ITEM 2 UNIT INH (19:26)
[2025-01-30] VITALS (8 sets, daily range): BP systolic 96–121; BP diastolic 48–63; BMI 22.8
[2025-01-30 06:25] LABS: Hematocrit 36.2 % (39.0-52.0); Hemoglobin 12.9 g/dL (13.0-18.0); Mean Corp Hgb Conc. 35.6 g/dL (33.0-37.0); Mean Corpuscular Volume 87.9 fL (80.0-94.0); Nucleated Red Blood Cells % 0 % (-); Platelet Count 168 10^3/uL (130-400); Red Cell Dist. Width 12.3 % (11.5-14.5)
[2025-01-30] MEDS: COLACE PO (07:07)
[2025-01-30] MEDS: PROTONIX PO (07:07)
[2025-01-30] MEDS: FLOMAX PO (07:08)
[2025-01-30] MEDS: HEPARIN 5000 UNITS SC (07:24)
[2025-01-30 07:26] LABS: ALT (SGPT) < 10 U/L (0-50); AST (SGOT) 18 U/L (17-59); Albumin 3.7 g/dl (3.5-5.0); Alkaline Phosphatase 58 U/L (38-126); Blood Urea Nitrogen 25 mg/dl (9-20); Calcium 8.9 mg/dl (8.4-10.2); Carbon Dioxide 30 mmol/L (22-30); Chloride 100 mmol/L (98-107); Estimated Creatinine Clearance 52 ml/min; Glucose 94 mg/dl (70-99); Potassium 3.7 mmol/L (3.5-5.1); Sodium 136 mmol/L (135-145); Total Protein 6.0 g/dl (6.3-8.2); eGFR > 60.00
[2025-01-30] MEDS: NON-FORMULARY ITEM 2 UNIT INH (07:49)
--- NOTE | 2025-01-30 11:18 | CM ---
patient seen at bedside
await cardiac cath
PLAN: Home, when stable, no needs anticipated
--- NOTE | 2025-01-30 15:57 | ITS.CL.PN ---
Addendum entered and electronically signed by Isreal Hooper MD 01/30/25 16:24:
CONCLUSION:
1. Trivial luminal irregularities only in a left dominant system.
2. Mildly elevated biventricular filling pressures and normal cardiac output.
Original Note:
Director Ehs - Procedure Note
Procedure
Procedure Note:
CARDIAC CATHETERIZATION REPORT
Date of Procedure: 01/30/2025
Referring: Dr. Kavya Wahl MD
Indication: Severe aortic stenosis
PROCEDURE(S)
1. right heart catheterization
2. left heart catheterization
3. coronary angiography
ACCESS
1. 6F right radial artery (closure: radial band)
2. 5F right antecubital vein (closure: manual hemostasis)
CATHETERS
1. 5F [place]-Kathleen
2. 6F JR4
3. 6F JL4
MODERATE SEDATION: 25 minutes of moderate sedation was utilized. An independent medical typist was present to assist with and help manage the patient's level of consciousness and physiologic status.
HEMODYNAMIC DATA
AO 116/56 (mean 77) mmHg
RA 7 mmHg
RV 42/1 (EDP 10) mmHg
PA 48/18 (mean 29) mmHg
PCWP 19 mmHg
SaO2 98.1%
SvO2 75.9%
Hb 13.3 g/dL
CO/CI 5.49/3.11 L/min/m2
SVR 1020 dsc*-5
PVR 1.8 Wood units
CORONARY ANGIOGRAPHY
Dominance: co-dominant
LM: large with no significant disease
LAD: large vessel giving rise to a small D1 and large D2. There are trivial luminal irregularities only.
LCx: large co-dominant vessel giving rise to a small OM1, large OM2, small LPL, and moderate caliber LPDA. There are trivial luminal irregularities only.
RCA: moderate caliber co-dominant vessel giving rise to a small RPDA. There are trivial luminal irregularities only.
RADIATION: dose 176 mGy; DAP 6.98 Gy*cm2; fluoroscopy time 3.2 min
CONCLUSION: Trivial luminal irregularities only in a left dominant system.
RECOMMENDATION: Proceed with expedited TAVR workup.
Copy to: Dr. Nino Olivas DO (PCP)
Signed: Isreal Hooper MD, PhD
--- NOTE | 2025-01-30 16:59 | W.DS.TRANS ---
DC Summary - Merchandise Displayer
-
Discharge Instructions:
Sleep Apnea Risk Intermediate
Discharge Diagnosis/Procedures Acute CHF mildly reduced EF/valvular
Critical aortic stenosis
Essential hypertension
COPD without acute exacerbation
Former smoker
BPH
Cardiac cath
Diet 2 Gram Sodium,Low Cholesterol
Instructions:
Stand-Alone Forms: DC Instructions- Cath/EP Lab
Changes to Home Medications: No
Discharge Medications:
DC Medications w/original date entered in [employer]
Breztri Aerosphere 2 puff inhalation BID Lung/Breathing Issues 01/28/25
Colace 100 mg PO DAILY Constipation 01/28/25
Fish Oil 1,000 mg PO DAILY Supplement 01/28/25
Flomax 0.4 mg PO DAILY Urinary Issue 01/28/25
Psyllium Husk Fibre 1 tab PO DAILY Constipation 01/28/25
pantoprazole 40 mg PO DAILY@0730 Gastrointestinal Issue 01/28/25
vitamin E 1 cap PO DAILY Supplement 01/28/25
lisinopril 10 mg tablet 10 mg PO DAILY #30 tabs 01/30/25
Home Medication Changes
HCTZ stopped
Pending Results: No
== END 2025-01-30 19:19 | disposition home or self-care (01) | DRG 286 ==
LOC: 3 WEST ACU 14:22
PROVIDERS: Clinical Nurse Specialist Family Health; Student in an Organized Health Care Education/Training Program; ADMITTING PHYSICIAN Internal Medicine; ATTENDING PHYSICIAN Internal Medicine; CONSULT PHYSICIAN Internal Medicine Cardiovascular Disease; EMERGENCY PHYSICIAN Emergency Medicine; FAMILY PHYSICIAN Internal Medicine
PROC: 4A023N8 Measurement of Cardiac Sampling and Pressure, Bilateral, Percutaneous Approach (ICD-10-PCS; 2025-01-30)
PROC: B2111ZZ Fluoroscopy of Multiple Coronary Arteries using Low Osmolar Contrast (ICD-10-PCS; 2025-01-30)
DX: I35.0 Nonrheumatic aortic (valve) stenosis (principal); I50.23 Acute on chronic systolic (congestive) heart failure; I11.0 Hypertensive heart disease with heart failure; J44.9 Chronic obstructive pulmonary disease, unspecified; K21.9 Gastro-esophageal reflux disease without esophagitis; N40.0 Benign prostatic hyperplasia without lower urinary tract symptoms; Z66 Do not resuscitate; I95.9 Hypotension, unspecified; Z60.2 Problems related to living alone; Z87.891 Personal history of nicotine dependence
CPT/HCPCS: 71046; 74174; 75572; 80053; 80061; 83735; 83880; 84484; 85025; 93005; 93306; 93460; 94640; 96374; 97162; 99152; 99153; 99285; C1769; C1894; Q9967

== ENCOUNTER 2025-02-05 14:54 | Inpatient (IN) | payer OTHER, SELFPAY ==
[2025-02-05 15:12] VITALS: BP 134/62
[2025-02-05 15:14] VITALS: BMI 23.7
--- NOTE | 2025-02-05 15:44 | CM ---
Reviewed chart. Met with Mr Valle and his daughter to review discharge plans. He states prior to admission he resides alone in an in-law apartment attached to his daughter and son-in law home. He states he has one level living arrangement. He
states he has two steps to enter the apartment. He states prior to admission he was independent with with ambulation and adls. He states he does not have any DME in the home. He states he has a prescription plan and uses [facility]. His
daughter states she will be home the weekend to check on him. We reviewed VNA Services because he maybe out of the catchment area for the Transitional Care Nurse. He is agreeable to VNA Services if indicated. Medical work-up in progress. The
discharge plan is to return home with his daughter and son-in-law and VNA Services if indicated when medically stable
We reviewed ore-op and post-op routines. We briefly reviewed the shower instructions. We also reviewed restrictions including driving and lifting restrictions. He maybe out of the catchment area for the Transitional Care Nurse, so he is agreeable
to VNA Services if needed. The plan is for TAVR on Sunday02/06/25.
[2025-02-05] MEDS: ASPIRIN 325 MG PO (15:58)
[2025-02-05 17:13] LABS: Hematocrit 36.7 % (39.0-52.0); Hemoglobin 12.7 g/dL (13.0-18.0); Mean Corp Hgb Conc. 34.6 g/dL (33.0-37.0); Mean Corpuscular Volume 89.5 fL (80.0-94.0); Platelet Count 168 10^3/uL (130-400); Red Cell Dist. Width 12.3 % (11.5-14.5)
[2025-02-05 17:30] LABS: Blood Urea Nitrogen 16 mg/dl (9-20); Calcium 9.0 mg/dl (8.4-10.2); Carbon Dioxide 27 mmol/L (22-30); Chloride 102 mmol/L (98-107); Estimated Creatinine Clearance 59 ml/min; Glucose 105 mg/dl (70-99); Potassium 4.9 mmol/L (3.5-5.1); Sodium 133 mmol/L (135-145); eGFR > 60.00
--- NOTE | 2025-02-05 17:45 | HPS.HSE ---
Chief Complaint
-
shortness of breath
History of Present Illness
Bony Valle is a 89-year-old male with past medical history of HFrEF (45 to 50%), critical aortic stenosis, COPD, former smoker, and hypertension. He presented to the emergency department on 01/28 with the chief complaint of OROZCO. His shortness of
breath started at least 4 weeks ago. It had been slowly getting worse. He does not have any shortness of breath at rest. He also complains of a near syncopal episode when swimming. He denies chest pain, palpitations, PND and orthopnea. He does
not follow with a excellence leader and recalls being told for years he has a murmur.
While hospitalized he underwent right and left heart cath and TAVR CT angiogram as part of expedited TAVR workup. Right heart cath demonstrated normal hemodynamics and coronary angiography demonstrated minimal CAD. His TAVR CT angiogram demonstrated
anatomy appropriate for TAVR. He was discharged with plan for close outpatient TAVR, and underwent dental evaluation. While at home he has had progression of dyspnea on exertion, now with minimal activity. In the setting the decision was made to
have him admitted for urgent TAVR.
Medical History
Past Medical History
Past Medical History: Reports Other
Additional Past Medical History:
BPH, COPD, CHF, GERD, HTN, critical
Past Surgical History: Reports Other
Additional Past Surgical History:
none
Social History
Tobacco: Non-smoker
Family History
Family History: Not pertinent
Allergies / Home Medications
Allergies reflects when Allergies were last updated in [facility].
Home Medications with original date entered in [facility]
Allergy/Medication List:
none
Review of Systems
-
Respiratory: Reports Trouble Breathing
Physical Exam
Vital Signs
Vital Signs
Pulse BP Pulse Ox
80 134/62 98
02/05/25 15:15 02/05/25 15:12 02/05/25 16:00
Physical Exam
General: Well Nourished
Respiratory: Clear
Cardiac: Regular Rhythm and Murmur
Skin: Warm
Neuro: AO x 3
Laboratory Results
-
02/05/25 17:04
02/05/25 17:04
Data Reviewed
-
Diagnostic Radiology: Image Personally Visualized and interpreted
CT Scan: Image Personally Visualized and interpreted
Lab Data: Labs Reviewed by me
Impression/Plan
-
I/P: 89M with critical aortic stenosis, COPD, hypertension, admitted for urgent TAVR in setting of progressive symptoms with minimal activity.
Aortic stenosis, critical
- truly critical with mean gradient 80 with DVI 0.1
- Workup completed, discussed at multidisciplinary valve team meeting, decision made for 26 mm ELAINA with 2 additional cc of volume via right femoral artery with preballoon valvuloplasty
- Patient currently comfortable at rest, and given normal filling pressures on recent right heart cath will not diurese ahead of planned TAVR tomorrow
HFrEF (EF 45-50%), acute on chronic - severe requiring hospitalization
- likely 2/2 valvular heart disease, no CAD
- favor initiation of GDMT after valve replacement
- Trend Daily weight, I/O, BMP
Hypertension
- Follow BP
- will reinitiate antihypertensives with GDMT prioritized post TAVR
COPD, no acute exacerbation, per primary
Former smoker, continued cessation recommended
--- NOTE | 2025-02-05 17:56 | PTCARENOTE ---
Pt admitted as a direct admission for a TAVR on Sunday. Denies any pain or sob. Room air sat 98%. OOB ad reba, gait steady. SR, rate in the 80's to 90's. No c/o offered.
[2025-02-05 19:10] VITALS: BP 79/61
[2025-02-05 19:13] VITALS: BP 108/52
[2025-02-05] MEDS: SYMBICORT 160/4.5 MCG INHALER 2 PUFF INH (19:50)
--- NOTE | 2025-02-05 20:30 | PTCARENOTE ---
Received pt @ change of shift. AAOx3, VSS-- NSR on monitor. OROZCO. Denies chest pain. Discussed plan of care for evening, including TAVR prep. Pt verbalizes understanding. Call redman within reach.
[2025-02-05 22:02] VITALS: BP 136/72
[2025-02-06] VITALS (17 sets, daily range): BP systolic 91–146; BP diastolic 48–63; BMI 23.7; BMI 23.5
--- NOTE | 2025-02-06 00:19 | PTCARENOTE ---
TAVR prep completed. Pt clipped, washed with CHG soap, new gown and bedding. Discussed plan for morning prep. Pt verbalizes understanding. Notified CV PA (Ebenezer Morse) that prep was completed.
--- NOTE | 2025-02-06 05:29 | PTCARENOTE ---
Second CHG bath given. Gown and bedding changed. Vitals taken and stable. Height and weight documented. Will obtain Ancef to be sent with pt prior to his leaving. Aspirin will be given-- see JUL.
Bhavna (daughter) is patient's emergency contact--[phone]
[2025-02-06] MEDS: LOW STRENGTH ASPIRIN 81 MG PO (05:51)
--- NOTE | 2025-02-06 06:17 | W.CVOR.SURPR ---
CVOR Surgeon Immed Pre Op
-
I have examined this patient prior to performance of the scheduled procedure.
The patient's condition is unchanged from the time of the dictated/written History and
Physical and the patient is able to undergo the scheduled procedure.
[2025-02-06] MEDS: ANCEF 10 IV ×2 (07:45)
[2025-02-06] MEDS: ANCEF 5 IV (07:45)
[2025-02-06] MEDS: THERAGRAN PO (08:00)
--- NOTE | 2025-02-06 08:34 | CM ---
Addendum entered by Jessica Zepeda 02/06/25 12:02:
Met with Mr. Valle and his family. Reviewed VNA Services with them. They are agreeable to [facility]. Telephone call to [facility] Liaison to make the referral. Sent the referral. Medial work-up in progress. The discharge plan is to return home
with his family and [facility] when medically stable.
Original Note:
Reviewed chart. Mr. Valle is in the operating room today. Prior to admission he resides alone in an in-law apartment attached to his daughter and son-in law home. He has one level living arrangement. He has two steps to enter the apartment. Prior
to admission he was independent with with ambulation and adls. He does not have any DME in the home. He states he has a prescription plan and uses [facility]. Daughter will be home the weekend to check on him. We reviewed VNA Services because he
maybe out of the catchment area for the Transitional Care Nurse. He is agreeable to VNA Services if indicated. Medical work-up in progress. The discharge plan is to return home with his daughter and son-in-law and VNA Services if indicated when
medically stable
[2025-02-06 08:50] LABS: ACT-LR - POC 310 Seconds (116-155)
--- NOTE | 2025-02-06 09:09 | W.IMMPOSTOP ---
Surgical Immed Post Op Note
-
[id number]
STRUCTURAL HEART PROCEDURE NOTE: TAVR
Preoperative Dx:
Critical aortic stenosis with peak/mean valve gradients of 139/80 mmHg respectively, CAITLIN 0.54, DVI 0.1, mild associated aortic regurgitation
Mild to moderate mitral regurgitation with thickened valve leaflets
LVEF 40 to 45% with hypokinesis of the anterior and anterolateral geronimo, stage II diastolic dysfunction
COPD (former smoker)
Hypertension
Gastroesophageal reflux disease
BPH
Postoperative Dx:
Same
Acute on chronic combined systolic and diastolic CHF secondary to critical aortic stenosis with LVEDP of 36mmHg
Procedures:
Left common femoral venous access with ultrasound and fluoroscopic guidance, modified Seldinger technique, long 6 [place] sheath placement
Left common femoral arterial access with tactile, ultrasound, and fluoroscopic guidance, modified Seldinger technique, limited angiography, long 6 [place] sheath placement
Placement of temporary RV pacing wire via left common femoral venous access with threshold testing
Placement of pigtail catheter in RCC with limited aortography and confirmation of coplanar valve deployment angles (AP)
Right common femoral arterial access with tactile, ultrasound, and fluoroscopic guidance, modified Seldinger technique, limited angiography, 8 [place] dilator placement
Perclose placement x 2 into right common femoral artery, 8 [place] sheath placement
Placement of Cantrell E sheath via right common femoral artery access (systemic heparinization)
Wire purchase across patient's stenotic aortic valve (AL-1, soft-tipped straight, LVEDP assessment, extra-stiff with curved proximal end)
Pre-TAVR BAV with 21 mm true balloon
Right transfemoral TAVR with placement of [employer] ELAINA 3 Resilia valve, 26 mm (+2)
Completion aortography
Completion TTE assessment (no PVL or AI, mean gradient 2 mmHg)
Removal of Cantrell E sheath with right common femoral artery management with Perclose sutures x 2; manual pressure (protamine administration)
Completion right iliofemoral angiography
Removal of temporary pacing wire
Removal of left common femoral arterial 6 [place] sheath with management with Perclose suture x 1; manual pressure
Removal of left common femoral venous 6 [place] sheath with management with manual pressure
Equipment Service Engineer:
Dr. Isreal Hooper
Cardiac Surgeons:
Dr. Joaquin Gilmore
Dr. Loida Lainez
Anesthesia:
MAC and local to bilateral groins
Implants:
Cantrell [employer] ELAINA 3 Resilia valve 26 mm (+2); serial #[id number], model #[id number]
Perclose x 2 to right common femoral artery
Perclose x 1 to left common femoral artery
Cath Data:
Start: 0805hrs, Deploy: 0846hrs, End: 0906hrs
FT: 14.2min, mGy: 209, DAP: 20.9, Contrast: 94
Mean gradient 2mmHg, no AI/PVL
Complications:
None
Condition:
Stable/guarded to recovery; NSR
--- NOTE | 2025-02-06 11:00 | PTCARENOTE ---
Rec'd report from Yelena in the clinical laboratory technologist & rec'd pt AAOx3, a little drowsy but easily arousable. Pt w/no c/o CP or SOB. VSS w/HR in the 50's & BP 115/50. Pt is SB on telemetry monitoring. Pt w/bilat groin sites w/dressings C/D/I w/no signs or
symptoms of bleeding or hematoma. Pt w/doppler pedal pulses. Discussed activity restrictions w/pt & family at bedside. Pt verbalized his understanding. Pt w/call redman within reach & plan of care ongoing.
[2025-02-06] MEDS: SYMBICORT 160/4.5 MCG INHALER INH (11:30)
[2025-02-06] MEDS: SPIRIVA RESPIMAT 2.5 MCG INH (11:30)
[2025-02-06] MEDS: FLOMAX 0.4 MG PO (14:23)
[2025-02-06] MEDS: COLACE 100 MG PO (14:23)
[2025-02-06] MEDS: PROTONIX 40 MG PO (14:23)
--- NOTE | 2025-02-06 19:28 | ITS.CL.PN ---
[facility] Physical Therapist - Procedure Note
Procedure
Procedure Note:
TRANSCATHETER AORTIC VALVE REPLACEMENT REPORT
Date of Procedure: 02/06/2025
Referring: Dr. Kavya Wahl MD
Indication: Symptomatic critical aortic valve stenosis
Operators: Isreal Hooper MD, PhD (interventional cardiology); Joaquin Gilmore (CT surgery)
Anesthesia: conscious sedation provided by the anesthesia staff
PROCEDURE: transfemoral, transcatheter aortic valve replacement with an Cantrell ELAINA 3 Ultra RESILIA 26 mm transcatheter aortic valve (with additional 2 cc inflation volume)
ACCESS:
1. 6F left femoral vein (closure: manual hemostasis) - Ultrasound was utilized for vascular access. The vessel was visualized under ultrasound and noted to be patent. An image of the vessel was stored permanently in the patient's medical record.
Under direct ultrasound guidance, vascular access was obtained using a modified Seldinger technique and a 6 Chinese sheath was placed.
2. 6F left common femoral artery (closure: Angioseal) - Ultrasound was utilized for vascular access. The vessel was visualized under ultrasound and noted to be patent. An image of the vessel was stored permanently in the patient's medical record.
Under direct ultrasound guidance, vascular access was obtained using a modified Seldinger technique and a 6 Chinese sheath was placed.
3. 14F right common femoral artery (closure: Perclose x2) - Ultrasound was utilized for vascular access. The vessel was visualized under ultrasound and noted to be patent. An image of the vessel was stored permanently in the patient's medical
record. Under direct ultrasound guidance, vascular access was obtained using a modified Seldinger technique and a 6 Chinese sheath was placed.
HEMODYNAMIC DATA
LVEDP 36 mmHg
PROCEDURE NARRATIVE:
The patient was prepped and draped in standard sterile fashion. Conscious sedation was provided by the anesthesia staff. 6F left femoral vein and left common femoral artery access was obtained with ultrasound guidance using micropuncture technique
with verification of appropriate arteriotomy location via hand injection angiography. A temporary venous pacing wire was advanced via the left femoral vein to the right ventricle under fluoroscopic guidance with appropriate capture verified. A 5F
pigtail catheter was advanced via the left common femoral artery and seated in the right coronary cusp. Angiography was performed to verify the co-planar angle.
8F right common femoral artery access was obtained with ultrasound guidance using micropuncture technique with verification of appropriate arteriotomy location via hand injection angiography. The arteriotomy was preclosed with two Perclose sutures
followed by replacement of the 8F sheath. Using an AL1 catheter, an Amplatz Extrastiff wire was placed in the descending thoracic aorta. The 8F sheath was removed and the 14 F Cantrell E-sheath was inserted over the Extrastiff wire and into the
descending aorta. Heparin was given. The AL1 catheter was re-advanced through the E-sheath to the level of the ascending aorta. The Extrastiff wire was exchanged for a soft tipped straight wire which was used to cross the aortic valve and deposit
the AL1 in the LV apex. A J-wire was used to exchange the AL1 for a pigtail catheter in the LV and LVEDP was measured. An Amplatz Extrastiff wire with curved proximal end was advanced through the pigtail catheter and seated in the LV apex. ACT was
checked and confirmed to be >300 seconds.
A 20 mm True valvuloplasty balloon was advanced over the Extrastiff wire and into the aortic annulus. Valvuloplasty was performed under rapid pacing with good balloon expansion. The valvuloplasty balloon was removed.
The valve was brought to the table with orientation and deployment contrast volume verified. The valve was advanced over the Extrastiff wire and into the descending aorta. The balloon was withdrawn, and the valve was mounted on the balloon. The
valve was advanced over the aortic arch and into the aortic valve annulus. The pusher device was withdrawn. Low volume aortography confirmed valve positioning. The valve was deployed during rapid ventricular pacing. The balloon was walked back to
the descending aorta while leaving the wire in place. The patient was resuscitated by anesthesia with recovery of adequate blood pressure. Telemetry demonstrating normal sinus rhythm. Aortography demonstrated good valve positioning, adequate
coronary filling, and no aortic valve insufficiency. Echocardiography confirmed no aortic insufficiency. Mean valve gradient was 2 mmHg. The valve deployment system was removed.
The Cantrell E sheath was removed, and hemostasis obtained with the two Perclose sutures. Protamine was given. Aortoiliac angiography demonstrated no evidence of iliofemoral dissection/perforation and good runoff below the common femoral artery
bilaterally. The pacemaker and the pigtail catheter were removed. The left femoral artery sheath was removed using a 6F Angioseal. The left femoral venous sheath was removed with manual pressure.
RADIATION: dose 209 mGy; DAP 20.9 Gy*cm2; fluoroscopy time 14.2 min
CONCLUSIONS
1. successful placement of a Cantrell ELAINA 3 Ultra RESILIA 26 mm transcatheter aortic valve (with additional 2 cc inflation volume) via right transfemoral approach with no acute complications
2. acute on chronic systolic heart failure with elevated filling pressures (LVEDP = 36)
Copy to: Dr. Nino Olivas DO (PCP)
Signed: Isreal Hooper MD, PhD
--- NOTE | 2025-02-06 20:09 | W.PN.CD ---
Today's Communication / Plan
-
successful TF TAVR for critical
echo with normal valve function
discharge tomorrow stable labs, sucessful ambulation, stable telemetry
Impression / Plan
-
89M with critical aortic stenosis, COPD, hypertension, admitted for urgent TAVR in setting of progressive symptoms with minimal activity now POD0 s/p sucessful S26+2 TAVR from right groin, no acute complications.
Aortic stenosis, critical
- truly critical with mean gradient 80 with DVI 0.1
- admitted for urgent TAVR given progressive symptoms at home
- TAVR with Laura S3UR 26 (+2 cc extra volume) from right groin, final gradient 2 mmHg in room, 4 mmHg later on transthoracic, no PVL
HFrEF (EF 45-50%), acute on chronic - severe requiring hospitalization
- likely 2/2 valvular heart disease, no CAD, already improved to 50-55% on post TAVR TTE
- reinitiate home lisinopril
- consider low dose BB as outpatient, possible role in cardiac remodeling
Hypertension
- Follow BP
- will reinitiate antihypertensives with GDMT prioritized post TAVR, consider BB as next agent as above
COPD, no acute exacerbation, per primary
Former smoker, continued cessation recommended
Physical Exam
Vital Signs/Labs
Vital Signs
Temp Pulse Resp BP Pulse Ox
36.6 C 72 18 146/63 96
02/06/25 19:37 02/06/25 17:45 02/06/25 19:37 02/06/25 15:19 02/06/25 19:37
02/05/25 02/06/25 02/07/25
06:59 06:59 06:59
Actual Weight 68 kg
02/05/25 17:04
02/05/25 17:04
Physical Exam
Constitutional: Comfortable
Cardiovascular: Rhythm & rate is regular
Respiratory: Respiratory effort normal
Neuro/Psych: AO x 3
Data Reviewed
-
Date of Service: February 06, 2025
Medical Decision Making: Reviewed Test Results
X-Ray/CT/US/MRI/NUC/PET: Image Personally Visualized and interpreted
Labs: Labs Reviewed by me
[2025-02-06] MEDS: SYMBICORT 160/4.5 MCG INHALER 2 PUFF INH (20:11)
--- NOTE | 2025-02-06 23:55 | PTCARENOTE ---
Pt. has no complaints of CP/discomfort, VSS, NSR on the monitor. Bilateral groin site dressings CDI without hematoma, bilateral pedal pulses normal. Pt. independent and ambulatory in room. Currently resting quietly.
[2025-02-07 02:10] VITALS: BP 136/53
[2025-02-07 02:26] VITALS: BMI 23.9
[2025-02-07 02:49] LABS: Hematocrit 33.5 % (39.0-52.0); Hemoglobin 11.6 g/dL (13.0-18.0); Mean Corp Hgb Conc. 34.6 g/dL (33.0-37.0); Mean Corpuscular Volume 87.7 fL (80.0-94.0); Platelet Count 159 10^3/uL (130-400); Red Cell Dist. Width 12.5 % (11.5-14.5)
[2025-02-07 03:13] LABS: Blood Urea Nitrogen 18 mg/dl (9-20); Calcium 9.3 mg/dl (8.4-10.2); Carbon Dioxide 25 mmol/L (22-30); Chloride 104 mmol/L (98-107); Estimated Creatinine Clearance 59 ml/min; Glucose 94 mg/dl (70-99); Magnesium 1.9 mg/dl (1.6-2.3); Potassium 4.7 mmol/L (3.5-5.1); Sodium 136 mmol/L (135-145); eGFR > 60.00
--- NOTE | 2025-02-07 04:01 | W.PN.CT ---
Addendum entered and electronically signed by Joaquin Gilmore MD 02/07/25 09:47:
I saw and examined the patient.
The PA's note was reviewed and I agree with the note.
Comment:
D/C home today
Original Note:
Today's Communication / Plan
-
Plan:
-No major issues overnight. Hemodynamically and neurologically intact
-No issues with rhythm, currently NSR @
-Cont. current meds, ASA only for TAVR
-Groin C/D/I without significant hematoma
-Repeat echo today
-OOB into chair/Ambulate
-Likely D/C home today
Assessment / Plan
-
Assessment:
-S/P Right transfemoral TAVR (26 mm Cantrell Lifesciences ELAINA 3 Resilia valve), by Dr. Gilmore/Sandie, 02/06/25, pod#1
-Critical aortic stenosis with peak/mean valve gradients of 139/80 mmHg respectively, CAITLIN 0.54, DVI 0.1, mild associated aortic regurgitation
-Mild to moderate mitral regurgitation with thickened valve leaflets
-HFrEF, LVEF 40 to 45% with hypokinesis of the anterior and anterolateral geronimo, stage II diastolic dysfunction; 50-55% postop per intraop ZAFAR
-COPD (former smoker)
-Hypertension
-Gastroesophageal reflux disease
-BPH
-Anemia
-Hearing impairment
-Acute postop hyponatremia, 133
Discussed patient care with: Cardiology, Nursing, Respiratory Therapy, Pharmacy and Care Team
Subjective
-
Date of Service: February 07, 2025
Pt offers no complaints, feels well
Objective Data
-
Lab Results
02/07/25 02:23
02/07/25 02:23
Vital Signs
Vital Signs
Temp Pulse Resp BP Pulse Ox
98.5 F 79 18 136/53 90
02/07/25 02:08 02/07/25 02:10 02/07/25 02:08 02/07/25 02:10 02/07/25 02:08
CT Intake/Output/Weight
02/06/25 02/06/25 02/07/25
06:59 18:59 06:59
Intake Total 1120 / 1360 240 / 1360
Output Total 300 / 300
Balance 820 / 1060 240 / 1060
SaO2: 91 (RA)
Physical Exam
-
General: Awake, Oriented and AOx3
Cardiovascular: Regular rate & rhythm, No Murmurs, No Rub and No Gallop
Respiratory: Clear
Incision: Clean, Dry, Intact and Dressing Intact
Extremities: Other (+trace edema)
Data Reviewed
-
Lab Results: Results Reviewed
Medications: Active Meds Reviewed
Chest X-Ray: Report Reviewed and Image Reviewed
ECG: Report Reviewed and Image Reviewed
[2025-02-07 07:27] VITALS: BP 151/65
[2025-02-07] MEDS: FLOMAX 0.4 MG PO (08:15)
[2025-02-07] MEDS: PROTONIX 40 MG PO (08:15)
[2025-02-07] MEDS: COLACE 100 MG PO (08:15)
[2025-02-07] MEDS: THERAGRAN 1 TABLET PO (08:16)
[2025-02-07] MEDS: LOW STRENGTH ASPIRIN 81 MG PO (08:16)
[2025-02-07] MEDS: SPIRIVA RESPIMAT 2.5 MCG 2 PUFF INH (08:31)
[2025-02-07] MEDS: SYMBICORT 160/4.5 MCG INHALER 2 PUFF INH (08:32)
--- NOTE | 2025-02-07 08:56 | W.DCSUMMARY ---
Discharge Summary
Discharge Data
Date of Admission: 02/05/25
Date of Discharge: 02/07/25
Total time spent discharging patient (in min): 15
-
Pending Results: No
Hospital Course
Primary care physician:
Nino Olivas
Outpatient griddle cook:
Isreal Hooper
Inpatient consultants:
Procedures:
1. 02/06/25: Pre-TAVR BAV with 21 mm true balloon, Right transfemoral TAVR with placement of Cantrell Lifesciences LAURA 3 Resilia valve, 26 mm (+2)
Primary Diagnosis:
-Critical aortic stenosis with peak/mean valve gradients of 139/80 mmHg respectively, CAITLIN 0.54, DVI 0.1, mild associated aortic regurgitation
-Mild to moderate mitral regurgitation with thickened valve leaflets
-HFrEF, LVEF 40 to 45% with hypokinesis of the anterior and anterolateral geronimo, stage II diastolic dysfunction; 50-55% postop per intraop ZAFAR
-COPD (former smoker)
-Hypertension
-Gastroesophageal reflux disease
-BPH
-Anemia
-Hearing impairment
Secondary Diagnoses:
-S/P Right transfemoral TAVR (26 mm Cantrell Lifesciences LAURA 3 Resilia valve), by Dr. Gilmore/Sandie, 02/06/25
-Acute postop hyponatremia, 133
-Critical aortic stenosis with peak/mean valve gradients of 139/80 mmHg respectively, CAITLIN 0.54, DVI 0.1, mild associated aortic regurgitation
-Mild to moderate mitral regurgitation with thickened valve leaflets
-HFrEF, LVEF 40 to 45% with hypokinesis of the anterior and anterolateral geronimo, stage II diastolic dysfunction; 50-55% postop per intraop ZAFAR
-COPD (former smoker)
-Hypertension
-Gastroesophageal reflux disease
-BPH
-Anemia
-Hearing impairment
HPI: Bony Valle is a 89-year-old male with past medical history of HFrEF (45 to 50%), critical aortic stenosis, COPD, former smoker, and hypertension. He presented to the emergency department on 01/28 with the chief complaint of OROZCO. His shortness
of breath started at least 4 weeks ago. It had been slowly getting worse. He does not have any shortness of breath at rest. He also complained of a near syncopal episode when swimming. He denies chest pain, palpitations, PND and orthopnea. He
recently has been following with Dr. 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
He was hospitalized in early January for heart failure and underwent right and left heart cath and TAVR CT angiogram as part of expedited TAVR workup. Right heart cath demonstrated normal hemodynamics and coronary angiography demonstrated minimal
CAD. His TAVR CT angiogram demonstrated anatomy appropriate for TAVR. He was discharged with plan for close outpatient TAVR, and underwent dental evaluation. While at home he has had progression of dyspnea on exertion with minimal activity. In the
setting the decision was made to have him admitted for urgent TAVR.
Hospital course: Patient was admitted on 02/05/25. Patient underwent TAVR on 02/06/25. He was transferred to the CVICU postoperatively in stable condition. His rhythm remained stable and EKG showed no evidence of bundle branch blocks on POD#1. He
underwent echocardiogram on POD#1 which showed:
1. Normal biventricular size and function without regional wall motion abnormalities.
2. LVEF is 50-55% by visual assessment. Mild left ventricular hypertrophy.
3. S/p 26 mm Cantrell Laura Resilia TAVR. Mean gradient is 4 mmHg no significant regurgitation.
4. Mild to moderate mitral regurgitation.
Patient was restarted on his home medications and it was felt that he could safely be discarged to home on POD#1. His access sites were intact without bleeding or hematomas.
Home medication changes:
Continued all home medications
New:
Aspirin 81mg Daily
Discharge Plan
-
Patient Disposition: Home (Routine Discharge)
Discharge Diagnosis/Procedures: TF-TAVR
Diet: Low Cholesterol and 2 Gram Sodium
Activity: As tolerated
Driving Restrictions: No driving for 1 week
Bathing Restrictions: OK to Shower
Others Tests: 30 Day Follow Up Echo: Schedule for you at [facility] on 03/09 @ 3pm
Other Services: Cardiac Rehab
Wound Care: Please do not apply powders, creams or lotions to groin areas. Monitor for increased pain, swelling, redness or drainage. Notify your doctor if any occur.
Specialty Instructions: Weigh Daily- Call MD for wt gain/loss 3 lbs overnight/5 lbs in 1 week
Referrals:
Nino Soler [Other]
Referral Note: Family Physician
[facility] [Outside] - in one to two days
Federica Hayward CRNP [Specified Professional Personl, Cardiology] - 03/11/25 11:30 am
Prescriptions:
New
aspirin 81 mg Tablet,Chewable
81 mg PO DAILY Qty: 0 0RF
Continued
Fish Oil
1,000 mg PO DAILY
Psyllium Husk Fibre
1 tab PO DAILY
vitamin E
1 cap PO DAILY
lisinopril 10 mg Tablet
10 mg PO DAILY Qty: 30 0RF
Patient Comments:
hold for BP <110
tamsulosin [Flomax] 0.4 mg Capsule
0.4 mg PO DAILY Qty: 0 0RF
pantoprazole 40 mg tablet,delayed release (DR/EC)
40 mg PO DAILY Qty: 0 0RF
docusate sodium [Colace] 100 mg Capsule
100 mg PO DAILY Qty: 0 0RF
Breztri Aerosphere 160-9-4.8 mcg/actuation Hfa Aerosol Inhaler
2 inh INHALATION BID Qty: 0 0RF
Discharge Orders:
Discharge Patient (As Directed); Ordered 02/07/25
Ordered By: Dez Thompson
Care Plan Goals
Care Plan Goals:
Problem: Readiness for enhanced knowledge related to diagnosis and treatment plan
Goal: Understand your diagnosis and treatment plan needs, including medications if applicable.
Instructions: Know your diagnosis, underlying causes and treatment plan options, including medications if applicable. Consult with your health care team to learn about your diagnosis and treatment plan, including medications if applicable.
Discharge Date and Time
Print Language: GERMAN
[2025-02-07 09:40] VITALS: BP 121/94; BP 149/51; PULSE 77; O2SAT 94; O2SAT 95
[2025-02-07] MEDS: ZESTRIL 10 MG PO (09:51)
--- NOTE | 2025-02-07 09:57 | W.PN.ANS.POP ---
Anesthesia Post Operative
- Anesthesia Post Op Note
Vital Signs Stable-See Nursing Note: Yes
Airway Patent: Yes
Adequate Pain Control: Yes
Change in Mental Status: No
Current Postoperative Nausea & Vomiting: No
Anesthesia Complications: No
General Anesthetic Recall: No
Unplanned Admission: No
Post Op Hydration Adequate: Yes
--- NOTE | 2025-02-07 13:24 | W.PN.CD ---
Today's Communication / Plan
-
d/c today
Impression / Plan
-
89M with critical aortic stenosis, COPD, hypertension, admitted for urgent TAVR in setting of progressive symptoms with minimal activity now POD0 s/p sucessful S26+2 TAVR from right groin, no acute complications.
Aortic stenosis, critical
- truly critical with mean gradient 80 with DVI 0.1
- admitted for urgent TAVR given progressive symptoms at home
- TAVR with Laura S3UR 26 (+2 cc extra volume) from right groin, final gradient 2 mmHg in room, 4 mmHg later on transthoracic, no PVL
- doing well
HFrEF (EF 45-50%), acute on chronic - severe requiring hospitalization
- likely 2/2 valvular heart disease, no CAD, already improved to 50-55% on post TAVR TTE
- reinitiate home lisinopril
- consider low dose BB as outpatient, possible role in cardiac remodeling
Hypertension
- Follow BP
- will reinitiate antihypertensives with GDMT prioritized post TAVR, consider BB as next agent as above
COPD, no acute exacerbation, per primary
Former smoker, continued cessation recommended
Subjective feels well
Physical Exam
Vital Signs/Labs
Vital Signs
Temp Pulse Resp BP Pulse Ox
97.7 F 70 18 151/65 98
02/07/25 12:03 02/07/25 12:03 02/07/25 12:03 02/07/25 07:27 02/07/25 12:03
02/06/25 02/07/25 02/08/25
06:59 06:59 06:59
Actual Weight 149 lb 14.629 oz 152 lb 5.431 oz
02/07/25 02:23
02/07/25 02:23
Magnesium 1.9 mg/dl (1.6-2.3) 02/07/25 02:23
Physical Exam
Constitutional: No acute distress and Comfortable
EENT: Anicteric
Cardiovascular: Rhythm & rate is regular
Respiratory: Respiratory effort normal
GI: Soft
Neuro/Psych: Alert and Oriented
Data Reviewed
-
Date of Service: February 07, 2025
Medical Decision Making: Reviewed Test Results
EKG: Tracing Personally Visualized and interpreted
Echo: Tracing Personally Visualized and interpreted
Labs: Labs Reviewed by me
== END 2025-02-07 13:16 | disposition home health service (06) | DRG 266 ==
LOC: IVU 14:54
PROVIDERS: Nurse Practitioner; Physician Assistant Surgical; Thoracic Surgery (Cardiothoracic Vascular Surgery); ADMITTING PHYSICIAN Student in an Organized Health Care Education/Training Program
PROC: 02RF38Z Replacement of Aortic Valve with Zooplastic Tissue, Percutaneous Approach (ICD-10-PCS; 2025-02-06)
DX: I35.2 Nonrheumatic aortic (valve) stenosis with insufficiency (principal); I50.43 Acute on chronic combined systolic (congestive) and diastolic (congestive) heart failure; E87.1 Hypo-osmolality and hyponatremia; I34.0 Nonrheumatic mitral (valve) insufficiency; J44.9 Chronic obstructive pulmonary disease, unspecified; I11.0 Hypertensive heart disease with heart failure; K21.9 Gastro-esophageal reflux disease without esophagitis; N40.0 Benign prostatic hyperplasia without lower urinary tract symptoms; D64.9 Anemia, unspecified; H91.90 Unspecified hearing loss, unspecified ear; Z87.891 Personal history of nicotine dependence
CPT/HCPCS: 33361; 71045; 80048; 83735; 85027; 85347; 86850; 86900; 86901; 86920; 93005; 93308; 93321; 93325; 94640; C1760; C1769; Q9967

== ENCOUNTER → 2025-03-09 14:37 | Outpatient (REF) | payer OTHER, SELFPAY | LOC: RCS 14:37 | PROVIDERS: ATTENDING PHYSICIAN Student in an Organized Health Care Education/Training Program; FAMILY PHYSICIAN Internal Medicine | DX: I50.23 Acute on chronic systolic (congestive) heart failure (principal); Z95.2 Presence of prosthetic heart valve; I35.2 Nonrheumatic aortic (valve) stenosis with insufficiency | CPT/HCPCS: 93306 ==